=== PATIENT | male | born 1970 | race Caucasian/White ===

== ENCOUNTER 2018-08-24 08:39 | Day surgery (SDC) | payer BC ==
[~2018-08-24] VITALS: Ht 175.3 cm; Wt 74.8 kg
[~2018-08-24 08:39] MED LIST: IBUP-1780 PO
[2018-08-24] MEDS ORDERED: BUPIVACAINE 0.5% 30 ML (SENSORCAINE) VIAL ONE (08:57)
[2018-08-24] MEDS ORDERED: DEXAMETHASONE 10 MG/ML (DECADRON) 1 ML VIAL ONE ×2 (08:57→09:05)
[2018-08-24 09:00] VITALS: BP 127/89
[2018-08-24] MEDS ORDERED: ceFAZolin INJECTION 1,000 MG in NS (IVPB) 50 ML IV ONE (09:00)
[2018-08-24] MEDS ORDERED: proPOfol 200 MG/20 ML (DIPRIVAN) VIAL IV ONE (09:05)
[2018-08-24] MEDS ORDERED: SEVOFLURANE (ULTANE) 15 ML INHAL SOLN ONE (09:05)
[2018-08-24] MEDS ORDERED: ONDANSETRON 4 MG/2 ML (SDV) Z0FRAN ONE (09:05)
[2018-08-24] MEDS ORDERED: MIDAZOLAM 2 MG/2 ML (VERSED) VIAL ONE (09:06)
[2018-08-24] MEDS ORDERED: fentaNYL INJECTION 100 MCG/2 ML AMP ONE (09:06)
[2018-08-24] MEDS ORDERED: LORA-877 PO (09:27)
[2018-08-24] MEDS ORDERED: LACTATED RINGERS 1,000 ML IV PRN (09:49)
[2018-08-24] MEDS ORDERED: LIDOCAINE PF 2% 5 ML (XYLOCAINE) VIAL ONE (10:02)
--- NOTE | 2018-08-24 10:28 | Progress Note-Pre Operative ---
Pre-Operative Progress Note H&P Reviewed The H&P was reviewed, patient examined and no changes noted. Date Seen by Provider: Aug 24, 2018 Time Seen by Provider: 09:50 Date H&P Reviewed: Aug 24, 2018 Time H&P Reviewed: 09:51 Pre-Operative Diagnosis: Plantar Fasciitis left NIKHIL EDWARDS DPM Aug 24, 2018 10:28
--- NOTE | 2018-08-24 10:29 | Progress Note-Post Operative ---
Post-Operative Progess Note Surgeon (s)/World Renowned Chef And Restaurant Owner (s) Surgeon NIKHIL EDWARDS DPM World Renowned Chef And Restaurant Owner: none Pre-Operative Diagnosis Plantar Fasciitis left Post-Operative Diagnosis same Procedure & Operative Findings Date of Procedure 08/24/18 Procedure Performed/Findings Endoscopic Plantar Fascial release, left Anesthesia Type General Estimated Blood Loss Estimated blood loss (mL): Minimal Specimens/Packing Specimens Removed none NIKHIL EDWARDS DPM Aug 24, 2018 10:29
[2018-08-24] MEDS ORDERED: ONDANSETRON 4 MG/2 ML (SDV) Z0FRAN IVP PRN ×2 (10:30→10:45)
[2018-08-24] MEDS ORDERED: HYDROcodone/APAP 5 MG/325 MG (LORTAB) TAB PO PRN (10:30)
[2018-08-24] MEDS ORDERED: LACTATED RINGERS 1,000 ML IV SCH (10:30)
[2018-08-24] MEDS ORDERED: ACHD5005 PO (10:33)
[2018-08-24] MEDS ORDERED: morphine INJ 10 MG/ML 1ML (SYR OR VIAL) IVP ONE (10:45)
[2018-08-24 11:25] VITALS: BP 133/88
[2018-08-24 11:55] VITALS: BP 128/82
--- NOTE | 2018-08-24 12:11 | Physical Therapy Progress Note ---
Therapy Progress Note PT eval attempt. Pt reports he has used crutches in the past and as personnel, he trained people on crutch use. Reported he did not feel he needed crutch training. Verbalized understanding of NWB status and verbalized he knew the sequencing on stairs. He voiced no questions post discussion. No evaluation or treatment rendered per pt request. CRISTO FOUNTAIN PT Aug 24, 2018 12:11
--- NOTE | 2018-08-24 13:25 | Anesthesia-General Post-Op ---
General Patient Condition Mental Status/LOC: Same as Preop Cardiovascular: Satisfactory Nausea/Vomiting: Absent Respiratory: Satisfactory Pain: Controlled Complications: Absent Post Op Complications Complications None Follow Up Care/Instructions Patient Instructions None needed. Anesthesia/Patient Condition Patient Condition Patient is doing well, no complaints, stable vital signs, no apparent adverse anesthesia problems. No complications reported per nursing. [place] [facility] [place] Yes SAFIA LARA CRNA Aug 24, 2018 13:25
--- NOTE | 2018-08-24 19:48 | OPERATIVE REPORT ---
DATE OF SERVICE: 08/24/2018 SURGEON: Thuy Edwards DPM. PREOPERATIVE DIAGNOSIS: Plantar fasciitis, left foot. POSTOPERATIVE DIAGNOSIS: Plantar fasciitis, left foot. PROCEDURE PERFORMED: Endoscopic plantar fascial release, left foot. WOUND CLASS: Clean. ANESTHESIA: General. HEMOSTASIS: Pneumatic thigh tourniquet at 250 mmHg. INDICATIONS: This 48-year-old male presents complaining of painful left foot. Conservative therapy has met with unsatisfactory results and the patient is agreeable to surgical intervention after risks and complications were discussed at length. No guarantees were extended to the patient and he is willing to proceed. DESCRIPTION OF PROCEDURE: The patient was brought back to the operating table, placed in secure supine position. Appropriate time out was performed. General anesthetic was then induced. A Pneumatic thigh tourniquet was placed on the left lower extremity over several layers of padding. The left foot was prepped and draped in normal sterile manner. Left foot was then elevated and allowed to exsanguinate after which the tourniquet was inflated to 250 mmHg. Attention was then directed to the medial aspect of the left heel where a 1 cm vertical incision was created to the area of the plantar and dorsal skin juncture and just anterior to the attachment of the plantar fascia to the calcaneus. The incision was deepened in the same plane with blunt dissection and palpated in the plantar fascia. Next, an obturator and cannula were then introduced into the inferior aspect of the plantar fascia through the medial incision tenting the lateral skin where a second incision was created of approximately 0.5 cm vertical incision allowing the obturator and cannula to be pushed through the lateral aspect of the left foot. Next, the obturator was withdrawn from the foot and the cannula held in place after which a 3 mm scope was introduced into the lateral portal visualizing the inferior aspect of the plantar fascia. Next, utilizing a hook blade as well as a triangular blade, the medial third of the plantar fascia were cut noting good reduction of tension to the medial band of the plantar fascia to the medial arch. The instrumentation was withdrawn from the foot and the area was then thoroughly flushed with normal saline. The cannula was then withdrawn from the foot. The wounds were flushed once again after which closure was then performed. The lateral incision was repaired with a simple interrupted type stitch utilizing 4-0 nylon. The medial incision was closed with 4-0 Vicryl followed by 4-0 nylon in a simple and horizontal mattress type stitch. Postoperative injection consisted of 12 mL of 0.5% Marcaine plain injected in a local fusion to the surgical site followed by 10 mg of dexamethasone to the medial incision area to the plantar fascial attachment to the calcaneus. Postoperative dressing consisted of Betadine soaked Adaptic, sterile 4 x 4, sterile Kerlix all secured with Coban wrap. The patient tolerated the anesthesia and procedure well and was transported from the operating room to the recovery area with vital signs stable and vascular status intact to all digits of the left foot. He is to follow up in my office in 10 days' period of time or sooner if necessary. Job ID: [id number] DocumentID: [id number] Dictated Date: 08/24/2018 10:39:06 Division Controller Date: 08/24/2018 19:47:37 Dictated By: THUY EDWARDS DPM
== END 2018-08-24 12:05 | disposition home or self-care (01) ==
LOC: SDC 08:39
PROVIDERS: ATTEND Podiatrist Foot & Ankle Surgery
DX: M72.2 Plantar fascial fibromatosis (principal); Z11.2 Encounter for screening for other bacterial diseases; F17.220 Nicotine dependence, chewing tobacco, uncomplicated
CPT/HCPCS: 87081

== ENCOUNTER → 2019-06-23 | Outpatient (CLI) | payer BC ==
[~2019-06-23] MED LIST changes: +ACHD5005 PO; +CATHETER FLUSH 10 ML SYR IV PRN; +HOLD METFORMIN - RECEIVED CONTRAST 20 ML VIAL IV SCH; +IOHEXOL 350 MG/ML 100 ML (OMNIPAQUE 350) VIAL IV ONE; +LORA-877 PO; +NS 100 ML (IVPB) BAG IV ONE
[2019-06-23 10:16] LABS: BUN/CREATININE RATIO 12; CALCIUM 9.7 MG/DL (8.5-10.1); CARBON DIOXIDE 26 MMOL/L (21-32); CHLORIDE 105 MMOL/L (98-107); CREATININE SERUM 1.03 MG/DL (0.60-1.30); GFR ESTIMATED > 60; GLUCOSE 111 MG/DL (70-105); SODIUM 140 MMOL/L (135-145)
--- NOTE | 2019-06-23 11:28 | Diagnostic Imaging Report ---
PROCEDURE: CT abdomen and pelvis with contrast. TECHNIQUE: Multiple contiguous axial images were obtained through the abdomen and pelvis after administration of intravenous contrast. Auto Exposure Controls were utilized during the CT exam to meet ALARA standards for radiation dose reduction. INDICATION: Bloody urine. COMPARISON: None. FINDINGS: Included portions of the lung bases are clear. CT ABDOMEN: The kidneys, adrenal glands, spleen, pancreas, and liver have a normal CT appearance. Small bowel loops are nondistended. Normal appendix is identified. There is no loculated fluid collection, free fluid, nor free air within the abdomen. No abnormal mesenteric or retroperitoneal adenopathy is seen. Osseous structures show no acute abnormalities. CT PELVIS: Urinary bladder is grossly unremarkable. There is no loculated fluid collection, free fluid, nor free air. No abnormal adenopathy is seen. Osseous structures show no acute abnormalities. IMPRESSION: 1. Unremarkable CT of the abdomen and pelvis. Dictated by: Dictated on workstation # [id number]
== END ==
LOC: RAD FS 09:13
PROVIDERS: ATTEND Pediatrics
DX: R31.9 Hematuria, unspecified (principal)
CPT/HCPCS: 36415; 74177; 80048

== ENCOUNTER → 2019-06-30 | Outpatient (CLI) | payer BC ==
[~2019-06-30] MED LIST changes: -CATHETER FLUSH 10 ML SYR IV PRN; -HOLD METFORMIN - RECEIVED CONTRAST 20 ML VIAL IV SCH; -IOHEXOL 350 MG/ML 100 ML (OMNIPAQUE 350) VIAL IV ONE; -NS 100 ML (IVPB) BAG IV ONE
== END ==
LOC: LAB FS 08:57
PROVIDERS: ATTEND Pediatrics
DX: R73.09 Other abnormal glucose (principal)
CPT/HCPCS: 36415; 83036

== ENCOUNTER 2021-07-30 05:36 | Outpatient (RCR) | payer BC ==
[~2021-07-30] VITALS: Ht 175.3 cm; Wt 75.0 kg
[2021-07-31] MEDS ORDERED: ATOR20TA49 PO (14:49)
== END 2021-07-31 15:48 | disposition home or self-care (01) ==
LOC: PREOP 05:36 → EDSTATUS 10:00 → PREOP 07-31 15:48
PROVIDERS: ATTEND Podiatrist Foot & Ankle Surgery
DX: Z01.818 Encounter for other preprocedural examination (principal)

== ENCOUNTER 2021-08-06 08:23 | Day surgery (SDC) | payer BC ==
[~2021-08-06] VITALS: Ht 175.3 cm; Wt 75.0 kg
[2021-08-06] VITALS (11 sets, daily range): BP systolic 130–145; BP diastolic 83–101
[~2021-08-06 08:23] MED LIST changes: +ATOR20TA49 PO
[2021-08-06] MEDS ORDERED: ceFAZolin INJECTION 1,000 MG VIAL IV ONE (08:45)
[2021-08-06] MEDS: LACTATED RINGERS 1,000 ML IV PRN ×2 (08:59→11:34)
[2021-08-06] MEDS ORDERED: LIDOCAINE 1% INJ 20 ML VIAL ONE (09:38)
[2021-08-06] MEDS ORDERED: BUPIVACAINE 0.5% 30 ML (SENSORCAINE) VIAL ONE ×2 (09:38→11:15)
[2021-08-06] MEDS ORDERED: ONDANSETRON 4 MG/2 ML (SDV) Z0FRAN ONE (10:09)
[2021-08-06] MEDS ORDERED: proPOfol 200 MG/20 ML (DIPRIVAN) VIAL IV ONE (10:09)
[2021-08-06] MEDS ORDERED: LIDOCAINE PF 2% 5 ML (XYLOCAINE) VIAL ONE (10:09)
[2021-08-06] MEDS ORDERED: fentaNYL INJ 100 MCG/2 ML AMP ONE (10:09)
[2021-08-06] MEDS ORDERED: MIDAZOLAM 2 MG/2 ML (VERSED) VIAL ONE (10:09)
[2021-08-06] MEDS ORDERED: SEVOFLURANE (ULTANE) 15 ML INHAL SOLN ONE ×2 (10:09→12:03)
--- NOTE | 2021-08-06 10:23 | Progress Note-Pre Operative ---
Pre-Operative Progress Note H&P Reviewed The H&P was reviewed, patient examined and no changes noted. Date Seen by Provider: Aug 06, 2021 Time Seen by Provider: : Date H&P Reviewed: Aug 06, 2021 Time H&P Reviewed: : Pre-Operative Diagnosis: Hallux Rigidus, bilateral NIKHIL EDWARDS DPM Aug 06, 2021 10:23
[2021-08-06] MEDS ORDERED: PHENYLEPHRINE 100 MCG/ML 10 ML (ANESTHESIA) SYR ONE (10:33)
--- NOTE | 2021-08-06 11:37 | Physical Therapy Progress Note ---
Therapy Progress Note Visited with patient on equipment needs. Patient has established crutches, FWW and w/c. Patient declined PT intervention. 1 visit ASTER POSEY PT Aug 06, 2021 11:37
--- NOTE | 2021-08-06 12:03 | Progress Note-Post Operative ---
Post-Operative Progess Note Surgeon (s)/Midwife (s) Surgeon NIKHIL EDWARDS DPM Midwife: none Pre-Operative Diagnosis Hallux Rigidus, bilateral Post-Operative Diagnosis Same Procedure & Operative Findings Date of Procedure 08/06/21 Procedure Performed/Findings Cheilectomy, bilateral foot Anesthesia Type General Estimated Blood Loss Estimated blood loss (mL): Minimal Specimens/Packing Specimens Removed None NIKHIL EDWARDS DPM Aug 06, 2021 12:03
[2021-08-06] MEDS ORDERED: ACHD5005 PO (12:06)
[2021-08-06] MEDS ORDERED: MEPERIDINE (DEMEROL) INJ 50 MG/ML ONE (12:07)
[2021-08-06] MEDS ORDERED: LACTATED RINGERS 1,000 ML IV SCH (12:15)
[2021-08-06] MEDS ORDERED: ONDANSETRON 4 MG/2 ML (SDV) Z0FRAN IVP PRN (12:15)
[2021-08-06] MEDS ORDERED: MEPERIDINE (DEMEROL) INJ 50 MG/ML IVP ONE (12:15)
[2021-08-06] MEDS ORDERED: HYDROcodone/APAP 5 MG/325 MG (LORTAB) TAB PO PRN (12:15)
[2021-08-06] MEDS ORDERED: HYDROmorphone 2 MG/ML VIAL (DILAUDID) IV ONE (12:15)
--- NOTE | 2021-08-06 14:16 | Anesthesia-General Post-Op ---
General Patient Condition Mental Status/LOC: Same as Preop Cardiovascular: Satisfactory Nausea/Vomiting: Absent Respiratory: Satisfactory Pain: Controlled Complications: Absent Post Op Complications Complications None Follow Up Care/Instructions Patient Instructions None needed. Anesthesia/Patient Condition Patient Condition Patient is doing well, no complaints, stable vital signs, no apparent adverse anesthesia problems. No complications reported per nursing. D/C home per [facility] [place] Criteria: Yes SAFIA LARA CRNA Aug 06, 2021 14:16
--- NOTE | 2021-08-06 17:16 | OPERATIVE REPORT ---
DATE OF SERVICE: 08/06/2021 SURGEON: Thuy Lantigua DPM PREOPERATIVE DIAGNOSIS: Hallux rigidus bilaterally. POSTOPERATIVE DIAGNOSIS: Hallux rigidus bilaterally. PROCEDURE: 1. Cheilectomy left foot. 2. Cheilectomy right foot. WOUND CLASS: Clean. ANESTHESIA: General. HEMOSTASIS: Bilateral ankle tourniquets at 250 mmHg. INDICATIONS: This 51-year-old male presents complaining of pain to the great toe bilaterally. Conservative therapy has met with unsatisfactory results and the patient is agreeable to surgical intervention after risks and complications were discussed at length. No guarantees were extended to the patient and he is willing to proceed. DESCRIPTION OF PROCEDURE: The patient was brought back to the operating table, placed in secure supine position. Appropriate timeout was performed. A general anesthetic was then induced. Utilizing aseptic technique, a 10 mL of 1:1 mixture of 1% Xylocaine, 0.5% lidocaine was injected in a Beebe block to each first ray for a total of 20 mL. The feet were then prepped and draped in normal sterile manner. The right foot was then elevated, allowed to exsanguinate after which the tourniquet was inflated to 250 mmHg. Attention was then directed to the dorsal aspect of the right first metatarsophalangeal joint where a 6 cm longitudinal linear incision was created. The incision was deepened in same plane with great care to identify and retract all vital neurovascular structures. Only necessary blood vessels were cauterized as encountered. The incision was deepened down to the capsular tissue where a longitudinal capsulotomy was performed. The capsular tissue was reflected exposing the hypertrophic eminence to the dorsal aspect of the first metatarsal and base of the proximal phalanx. Utilizing a rongeur, the base of the proximal phalanx was reduced. Utilizing a power sagittal saw, the dorsal spurring to the first metatarsal head was reduced as well as the medial eminence to the first metatarsal head. The area was further contoured and smoothed with a power bur. The area was flushed with copious amounts of normal saline. There is a full-thickness degeneration of the articular cartilage noted to the dorsal lateral aspect of the first metatarsal head. This area was then fenestrated with a 1 mm drill. Any loose cartilage was sharply dissected away from the first metatarsal head. The area was further contoured and smoothed with a power bur cleansed with copious amounts of normal saline, after which closure was then performed in layers. Deep closure was performed with 3-0 Vicryl, superficial with 4-0 Vicryl, skin closure with 4-0 Prolene in a horizontal mattress type stitch. Excellent range of motion without crepitation was noted to the first metatarsophalangeal joint of the right lower extremity. Postoperative injection consisted of 10 mL of 0.5% Marcaine injected in a local infusion to the surgical site. The tourniquet was released noted appropriate cap refill time to all digits of the right foot. Postoperative dressing consisted of Betadine soaked Adaptic, sterile 4 x 4, sterile Kerlix all secured with a sterile Coban wrap. Attention was then directed to the left lower extremity where the left leg was elevated, allowed to exsanguinate and the tourniquet inflated to 250 mmHg. Attention was then directed to the dorsal aspect of the first metatarsophalangeal joint where again a 6 cm longitudinal linear incision was created. The incision was deepened down to the capsular tissue with great care to identify and retract all vital neurovascular structures. Only necessary blood vessels were cauterized as encountered. The incision was deepened down to the capsular tissue where once again a longitudinal capsulotomy was performed demonstrating significant osteophytes and dorsal spurring to the first metatarsal head and base of the proximal phalanx. These bony eminences were reduced with a rongeur power sagittal saw and power bur. The medial eminence of the first metatarsal head was also reduced with a power bur. Once again, full thickness degeneration was identified to the articular cartilage of the first metatarsal head. This area was approximately 1 cm in diameter and it was fenestrated with the 1 mm drill. The area was then further flushed and cleansed with normal saline, after which closure was performed in layers. Deep closure was performed with 3-0 Vicryl, superficial with 4-0 Vicryl, skin closed with 4-0 Prolene in a horizontal mattress type stitch. Postoperative injection consisted of 0.5% Marcaine with 10 mL injected in a Beebe block. Postoperative dressing consisted of Betadine soaked Adaptic, sterile 4 x 4, sterile Kerlix all secured with Coban wrap. The patient tolerated the anesthesia and procedure well, was transported from the operating room to the recovery room with vital signs stable and vascular status intact to all 10 digits. The patient is to be partial weightbearing with a surgical splint shoe and crutches if necessary. He is to follow up in my office in 10 days' period of time or sooner if necessary. Job ID: [id number] DocumentID: [id number] Dictated Date: 08/06/2021 12:15:12 Poured Concrete Wall Technician Date: 08/06/2021 17:15:59 Dictated By: CHANTELLE CABRERA
== END 2021-08-06 14:00 | disposition home or self-care (01) ==
LOC: SDC 08:23
PROVIDERS: ATTEND Podiatrist Foot & Ankle Surgery
DX: M20.22 Hallux rigidus, left foot (principal); M20.21 Hallux rigidus, right foot; E78.5 Hyperlipidemia, unspecified; F17.290 Nicotine dependence, other tobacco product, uncomplicated; Z79.899 Other long term (current) drug therapy
CPT/HCPCS: 87081

== ENCOUNTER → 2023-06-30 | Outpatient (CLI) | payer BC, OTHER ==
--- NOTE | 2023-06-30 13:18 | Diagnostic Imaging Report ---
PROCEDURE: CT Sinus w/o Contrast. TECHNIQUE: Multiple contiguous axial images were obtained through the sinuses without the use of intravenous contrast. Coronal reformations were performed. All CT scans use one or more of the following dose optimizing techniques: automated exposure control, MA and/or KvP adjustment based on a patient size and exam type, or iterative reconstruction. INDICATION: Chronic sinus disease. COMPARISON: None. FINDINGS: Modified [place] sinus scorin (0%) 1 (<25%) 2 (26-50%) 3 (51-75%) 4 (76-99%) 5 (100%) Ostiomeatal complex scorin (normal) 1 (partially obstructed) 2 (completely obstructed) Left Frontal sinus: 1 Left Anterior Ethmoidal cells: 1 Left Posterior Ethmoidal cells: 0 Left Maxillary sinus: 0 Left Sphenoid sinus: 1 Left Ostiomeatal complex: 0 Right Frontal sinus: 1 Right Anterior Ethmoidal cells: 0 Right Posterior Ethmoidal cells: 0 Right Maxillary sinus: 0 Right Sphenoid sinus: 1 Right Ostiomeatal complex: 0 Total Modified [place] score: 5 out of 54. ADDITIONAL FINDINGS: No fractures. The orbits are unremarkable. The visualized mastoids and middle ears are clear. IMPRESSION: 1. Modified [place] score of 5. 2. Mild mucosal thickening as above without air-fluid levels. 3. Remainder unremarkable. Dictated by: Dictated on workstation # [id number]
== END ==
LOC: RAD 10:07
PROVIDERS: ATTEND Nurse Practitioner
DX: Z01.89 Encounter for other specified special examinations (principal); J34.89 Other specified disorders of nose and nasal sinuses
CPT/HCPCS: 70486